=== PATIENT | male | born 1985 | race Caucasian/White ===

== ENCOUNTER 2017-07-09 18:00 | Emergency (ER) | payer MEDICAID ==
[~2017-07-09] VITALS: Ht 175.3 cm; Wt 75.0 kg
--- NOTE | 2017-07-09 18:27 | Urgent Treatment Center Report ---
See Addendum History of Present Issue Date/Time Seen by Provider 07/09/17 182 Visit Reason Pt arrived:Walked Presenting Problem:PT C/O OF ABCESS TO LEFT ARM, NO DRAINAGE Location if Accident: Onset of symptoms date/time:07/05/17 or onset unknown for: Have you (or family members/close friends) recently traveled outside the [place]? N If Yes, where/when: Have you had exposure to infectious disease within the past month? TB? Other? Specify: Patient state that he noticed small area on his left forearm that was raised and red. States that he knew it was an abcess so he marked around it so that he could watch to see if it got any bigger States that his mother and made him come in to get on antibiotics before it got to bad ALLERGIES Coded Allergies: MDX - Codeine (Codeine) (02/19/13) Converted from Generic Allergy: Acetaminophen W/Codeine #3 MDX - SULFA (sulfonamide) (SULFA (SULFONAMIDE)) (I-HIVES 02/17/13) Home Medications Reported Medications No Home Medications (NO HOME MEDICATIONS) History Medical History General Angina: No [place]: No Hypertension? No Hyperlipidemia? No CHF? No COPD? No Asthma? No Hernia? No CVA? No Seizures? No Diabetes? No UTI? No Stones? No GB Disease: No Hepatitis? No Cataracts? No Glaucoma? No MRSA? No TB? No Cancer? 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 No: respiratory distress. Lung Sounds bilateral: normal breath sounds, lungs clear. Cardiovascular normal exam, regular rate/rhythm Neurologic alert, normal exam, oriented x 3 Skin small round raised red area about the size of dime on left forearm slight bloody drainage, collected and sent to lab, denies puss no fever, no streaks with scab in place states that area has been open and draining since Sunday Medical Decision Making LABS/Meds/Orders Pt receiving controlled substance in ED? No Results/Orders Orders Procedure Date/time Status CULTURE, WOUND 07/09 1840 Active Departure Departure Time of Disposition 1839 Disposition DC Home or Self Care(routine) Clinical Impression Primary Impression: Abscess Condition STABLE Patient Instructions Skin Wound Additional Instructions Take medication as prescribed Watch area and make sure that area is continuing to decrease Over the counter tripple antibiotic ointment may be applied to area If you see that area is continuing to get larger, have red streaks or you began to run a fever go straight to the ER Follow up with family doctor Discharge Counseling Counseled pt/family regarding diagnosis, medications/RX, home care, follow up needs Prescriptions Current Visit Scripts Cephalexin (Keflex 250MG) 250 MG PO Q6 #28 CAP at 1840
[2017-07-09 18:46] VITALS: BP 149/78
--- OUTSIDE RECORDS SUMMARY | 2017-07-19 05:11 | External Medical Summary Rpt | CCD ---
Author Author , SAM VARGAS Address Unknown Phone [email or web address] Care Team Providers Care Biologist Name Role Phone ISAURO SAMMI, ISAURO Unavailable Unavailable SAMMI [facility], Unavailable Unavailable [facility] REYMUNDO ARTURO, Unavailable Unavailable REYMUNDO ARTURO JOSE RHO, JOSE Unavailable Unavailable RHO [facility] Unavailable Unavailable [facility], [facility] Unavailable Unavailable HOLDINGS, [facility] Unavailable Unavailable HOLDINGS, [facility] Un[facility], [facility] WILLIAN KATHERIN, Unavailable Unavailable WILLIAN KATHERIN GUARDADO KYL, GUARDADO Unavailable Unavailable KYL PETTEY JAM, PETTEY Unavailable Unavailable JAM [facility] Unavailable Unavailable EMERGENCY PHYS, [facility] Unavailable Unavailable EMERGENCY, [facility] Unavailable Unavailable CHANTELL, [facility] ROBERT INNA, ROBERT Unavailable Unavailable INNA [facility] Unavailable Unavailable #591, [facility] # Unavailable Unavailable [id number], [facility] # [id number] [facility], Unavailable Unavailable [facility] ANAM MAT, ANAM MAT Unavailable Unavailable Purpose Continuity of Care Document - 11-18-2009 through 2016 Problems Code Diagnosis DOS Provider Status 74116 ONYCHIA AND 06-01-2015 [place] [facility] 79764 OPEN WOUND 03-01-2015 [facility] [place] [facility] RADI[facility] WITHOUT MENTION COMPLICATIO N 4660 ACUTE 12-16-2014 [facility] PH[facility] 7862 COUGH 12-16-2014 [facility] [place] [facility] 42983 PAINFUL 12-16-2014 [facility] RESPIRATION N EMERGENCY PHYS 06673 PAIN IN 08-19-2014 [facility] CHANTELL V700 ROUTINE 08-19-2014 LAB IZABEL [facility] [facility] [email or web address] [email or web address] FACL 5225 PERIAPICAL 06-27-2014 [facility] ABSCESS [facility]IONAL WITHOUT EMERGENCY SINUS 75930 UNSPECIFIED 06-27-2014 [facility] ACQUIRED [facility]IONAL ABSENCE OF EMERGENCY TEETH 67974 [facility] 09-26-2010 [facility] Medications Na ND Rx Da Fi Fi Am Da Di Ph RX Ph St me C No te ll ll ou ys ag ar # ys at rm s nt no ma ic us Or Da si cy ia de te s n re d OX 00 04 04 0 15 3 WA 22 RU Ac YC 40 -1 -1 .0 L- 17 SH ti OD 60 5- 5- 00 MA 77 ve ON 51 20 20 RT 2 NE E- 20 10 10 [place] AC 1 PH C ET AR AM MA IN CY OP # HE N 10 5- 05 32 91 5 00 01 02 00 12 3 WA 44 RU Ac 40 -2 -1 .0 L- 83 SH ti 60 9- 1- 00 MA 15 ve 35 20 20 RT 8 NE 70 10 10 IL 5 PH C AR MA CY #5 91 PE 00 01 02 00 40 10 WA 70 RU Ac NI 78 -2 -1 .0 L- 56 SH ti CI 11 9- 1- 00 MA 53 ve LL 20 20 20 RT 4 NE IN 50 10 10 IL 1 PH C VK AR MA 25 CY 0 MG #5 91 TA BL ET Immunization Name Date Rout CVX Reac Dose Comm Prov Is Faci e tion ent ider Refu lity Give sed n TETA 08-2 35 [facility] No TYESHA NUS 5-20 TIGRE NGTO TOXO 15 KATHERIN N ID URGE ADSO NT RBED CARE INTR AMUS CULA R Procedures Procedure DOS Code Location Performer Comment TETANUS 83586 [facility] 5 URGENT KATHERIN ADSORBED CARE INTRAMUSC ULAR RADEX 16652 [facility] [place] [facility] 2 5 RADIOLOGY LD IV ALL VIEWS RADIOLOGI 80891 [facility] [place] JOSE C EXAM 5 RADIOLOGY RHO CHEST 2 VIEWS FRONTAL&L ATERAL ECG 32792 [facility] ROUTINE 5 [place] ECG EMERGENCY W/LEAST PHYS 12 LDS I&R ONLY BLOOD 82846 LAB [facility]EL LAB IZABEL COUNT 4 FABIO FABIO COMPLETE HOLDINGS HOLDINGS AUTO&AUTO DIFRNTL WBC COMPREHEN 59410 LAB [facility] SIVE 4 FABIO FABIO METABOLIC HOLDINGS HOLDINGS PANEL RADIOLOGI 07437 [facility] [place] ANAM MAT C 4 RADIOLOGY EXAMINATI ON KNEE 1/2 VIEWS MRI ANY 15846 ZAFAR DWYER JT LOWER 0 MEDICAL ARTURO EXTREM IMAGING W/O ASS CONTRAST MATRL RADIOLOGI 12786 [facility]YER C 0 MEDICAL ARTURO EXAMINATI IMAGING ON KNEE 3 ASS VIEWS Encounters Encounter Start End Date Code Location Performer Type Date OFFICE 15465 [facility] 5 URGENT KATHERIN T NEW 30 CARE MINUTES EMERGENCY 11664 [facility] [address] [facility] EMERGENCY T VISIT PHYS HIGH/URGE NT SEVERITY [facility] - 4 4 [facility] 71191 [facility] 4 4 [facility] T VISIT EMERGENCY HIGH/URGE NT SEVERITY [facility] - 0 0 [facility] OUTPATIEN INC T OFFICE 38490 [facility] PETTEY CONSULTAT 0 0 PHYSICIAN JONAS CHO NEW/ESTAB PATIENT 60 MIN HOSPITAL [facility] - 0 0 [facility] INC T OFFICE 83788 ISAURO BOX OUTPATIEN 0 0 SAMMI SAMMI T NEW 30 MINUTES
--- OUTSIDE RECORDS SUMMARY | 2017-07-19 05:11 | External Medical Summary Rpt | CCD ---
Demographics Preferred Language Guyanese Marital Status Unknown Amish Affiliation Unknown Race Unknown Ethnic Group Unknown Author Author , SAM VARGAS Address Unknown Phone Immunization No patient found.
--- OUTSIDE RECORDS SUMMARY | 2017-07-19 05:11 | External Medical Summary Rpt | CCD ---
Author Author , SAM Organization SAM Address Unknown Phone Care Team Providers Care Nursing Director Name Role Phone ISAURO SAMMI, ISAURO Unavailable Unavailable SAMMI [facility] REYMUNDO ARTURO, Unavailable Unavailable REYMUNDO ARTURO JOSE RHO, JOSE Unavailable Unavailable RHO [facility] Un[facility] Unavailable [facility], [facility] LUÍS RAYMUNDO MD, Unavailable Unavailable LUÍS RAYMUNDO MD [facility] Unavailable Unavailable IMAGING ASS, [facility] Unavailable Unavailable HOLDINGS, [facility] Unavailable Unavailable HOLDINGS, [facility] HOLDINGS [facility] Unavailable Unavailable CARE, [facility] Lisy Baron MD, Unavailable Unavailable Lisy PANDEY, Unavailable Unavailable WILLIAN SALINAS, DEBBY Unavailable Unavailable KYL PETTEY JAM, PETTEY Unavailable Unavailable [facility] Unavailable Unavailable EMERGENCY, [facility] Unavailable Unavailable CHANTELL, [facility] CH[facility]LL ROBERT INNA, ROBERT Unavailable Unavailable INNA [facility] Unavailable Unavailable #591, [facility] # Unavailable Unavailable [id number], [facility] # [id number] [facility], Unavailable Unavailable [facility] Purpose Continuity of Care Document - 11-18-2009 through 2016 Problems Code Diagnosis DOS Provider Status 27068 ONYCHIA AND 06-01-2015 [place] [facility] 37036 OPEN WOUND 03-01-2015 [facility] [place] [facility] RADIOLOGY WITHOUT MENTION COMPLICATIO N 4660 ACUTE 12-16-2014 [facility]Y PHYS 7862 COUGH 12-16-2014 [facility] [place] [facility] 51029 PAINFUL 12-16-2014 [facility] RESPIRATION [facility] EMERGENCY PHYS 29203 PAIN IN 08-19-2014 [facility] [place] CHANTELL V700 ROUTINE 08-19-2014 LAB IZABEL [employer] [facility]INGS [email or web address] CARE FACL 5225 PERIAPICAL 06-27-2014 [facility]ION[facility] WITHOUT EMERGENCY SINUS 02129 UNSPECIFIED 06-27-2014 [facility] ACQUIRED REGIONAL ABSENCE OF EMERGENCY TEETH 882.0 882.0 OPEN 02-19-2013 Josselin WOUND OF [facility] E849.0 E849.0 02-17-2013 Josselin ACCIDENT IN [facility] E920.3 E920.3 02-17-2013 [place] KNIFE/[facility] 28718 SYNOVIAL 09-26-[address] [facility] IM[facility] SPACE Allergies, Adverse Reactions, Alerts Type Drug Allergy Adverse Reaction to Substance Substance Reaction Severity SULFA (sulfonamide) I-HIVES Unknown Codeine Unknown Unknown Medications Na ND Rx Da Fi Fi Am Da Di Ph RX Ph St me C No te ll ll ou ys ag ar # ys at rm s nt no ma ic us Or Da si cy ia de te s n re d AD 49 05 0 No AC 28 -1 EL 10 3- Lo 40 20 ng TD 01 13 er AP 0 Ac ti AL ve LI 00 05 0 No DO 40 -1 CA 94 3- Lo IN 27 20 ng E 90 13 er HC 2 L Ac 1% ti ve AL OX 00 04 04 0 15 3 WA 22 RU Ac YC 40 -1 -1 .0 L- 17 SH ti OD 60 5- 5- 00 MA 77 ve ON 51 20 20 RT 2 NE E- 20 10 10 IL AC 1 PH C ET AR AM MA IN CY OP # HE N 10 5- 05 32 91 5 PE 00 01 02 00 40 10 WA 70 RU Ac NI 78 -2 -1 .0 L- 56 SH ti CI 11 9- 1- 00 MA 53 ve LL 20 20 20 RT 4 NE IN 50 10 10 IL 1 PH C VK AR MA 25 CY 0 MG #5 91 TA BL ET 00 01 02 00 12 3 WA 44 RU Ac 40 -2 -1 .0 L- 83 SH ti 60 9- 1- 00 MA 15 ve 35 20 20 RT 8 NE 70 10 10 IL 5 PH C AR MA CY #5 91 Immunization Name Date Rout CVX Reac Dose Comm Prov Is Faci e tion ent ider Refu lity Give sed n TETA 08-2 35 [facility] No TYESHA NUS 5-20 TIGRE NGTO TOXO 15 KATHERIN N ID URGE ADSO NT RBED CARE INTR AMUS CULA R Vital Signs 02-19-2013 19:39 Name Value Interpretat Reference Comment ion Range Body 98.6 [degF] Temperature BP 81 mm[Hg] Diastolic BP Systolic 141 mm[Hg] Heart 71 /min Rate/Pulse O2% 99 % Respiratory 20 /min Rate 02-17-2013 22:26 Name Value Interpretat Reference Comment ion Range BP 77 mm[Hg] Diastolic BP Systolic 132 mm[Hg] Heart 72 /min Rate/Pulse O2% 97 % Respiratory 18 /min Rate 02-17-2013 22:11 Name Value Interpretat Reference Comment ion Range BP 77 mm[Hg] Diastolic BP Systolic 132 mm[Hg] Heart 77 /min Rate/Pulse O2% 100 % Respiratory 16 /min Rate Procedures Procedure DOS Code Location Performer Comment TETANUS 85848 [facility] 5 URGENT KATHERIN ADSORBED CARE INTRAMUSC ULAR RADEX 08664 [facility] [place] [facility] 2 5 RADIOLOGY LD IV ALL VIEWS ECG 05254 [facility] ROUTINE 5 [place] ECG EMERGENCY W/LEAST PHYS 12 LDS I&R ONLY RADIOLOGI 90776 [facility] [place] [facility] C EXAM 5 RADIOLOGY RHO CHEST 2 VIEWS FRONTAL&L ATERAL BLOOD 27306 LAB [facility] LAB IZABEL COUNT 4 FABIO FABIO COMPLETE HOLDINGS HOLDINGS AUTO&AUTO DIFRNTL WBC COMPREHEN 61198 LAB [facility] LAB IZABEL SIVE 4 FABIO FABIO METABOLIC HOLDINGS HOLDINGS PANEL RADIOLOGI 77137 [facility] C 4 [place] EXAMINATI CHANTELL CHANTELL ON KNEE 1/2 [place] [address] [facility] SCHWAB JT LOWER 0 [facility] EXTREM INC INC W/O CONTRAST MATRL RADIOLOGI 25191 [place] REYMUNDO C 0 MEDICAL ARTURO EXAMINATI IMAGING ON KNEE 3 ASS VIEWS CLOSURE 86.59 M. Stiven OLVERA & Tod DUNCAN SUBCUTANE OUS NEC Encounters Encounter Start End Date Code Location Performer Type Date OFFICE 24058 ANTONELLA [facility] OUTPATIEN 5 5 URGENT KATHERIN T NEW 30 CARE MINUTES EMERGENCY 05939 [facility] 5 5 [place] K[place] DEPARTMEN EMERGENCY T VISIT PHYS HIGH/URGE NT SEVERITY HOSPITAL CAL - 4 4 [facility] CHANTELL T EMERGENCY 75654 [facility] 4 4 [facility] HIGH/URGE NT SEVERITY Emergency RENETTA RAYMUNDO (ER) 3 18:44 3 19:41 [facility] Emergency RENETTA Baron MD (ER) 3 21:49 3 22:26 [facility] JOSSELIN - 0 0 [facility] OUTPATIEN INC T OFFICE 89549 [facility] PETTEY CONSULTAT 0 0 PHYSICIAN JONAS CHO NEW/ESTAB PATIENT 60 MIN HOSPITAL [facility] - 0 0 [facility] INC T OFFICE 46313 ISAURO BOX OUTPATIEN 0 0 SAMMI SAMMI T NEW 30 MINUTES
--- OUTSIDE RECORDS SUMMARY | 2017-07-19 05:11 | External Medical Summary Rpt | CCD ---
Author Author , SAM Organization SAM Address Unknown Phone Care Team Providers Care Machinist General Name Role Phone ISAURO SAMMI, ISAURO Unavailable Unavailable SAMMI [facility], [facility] REYMUNDO ARTURO, Unavailable Unavailable REYMUNDO ARTURO JOSE RHO, JOSE Unavailable Unavailable RHO [facility] Unavailable Unavailable INC, [facility] LUÍS RAYMUNDO MD, Unavailable Unavailable LUÍS RAYMUNDO MD [facility] Unavailable Unavailable IMAGING ASS, [facility] IMAGING [facility] Unavailable Unavailable HOLDINGS, [facility] HOLDINGS [facility] Unavailable Unavailable HOLDINGS, [facility] HOLDINGS [facility] Unavailable Unavailable CARE, [facility] Lisy Baron MD, Unavailable Unavailable Lisy PANDEY, Unavailable Unavailable WILLIAN SALINAS, DEBBY Unavailable Unavailable KYL PETTEY JAM, PETTEY Unavailable Unavailable [facility] Unavailable Unavailable EMERGENCY, [facility] EMERGENCY [facility] Unavailable Unavailable CHANTELL, [facility] CHANTELL ROBERT INNA, ROBERT Unavailable Unavailable INNA [facility] Unavailable Unavailable #591, [facility] # Unavailable Unavailable [id number], [facility] # [id number] [facility], Unavailable Unavailable [facility] Purpose Continuity of Care Document - 11-18-2009 through 2016 Problems Code Diagnosis DOS Provider Status 16109 ONYCHIA AND 06-01-2015 [place] [facility] 56112 OPEN WOUND 03-01-2015 [facility] [place] [facility] RADIOLOGY WITHOUT MENTION COMPLICATIO N 4660 ACUTE 12-16-2014 [facility] BRONCHIT[facility] N EMERGENCY PHYS 7862 COUGH 12-16-2014 [facility] [place] [facility] 89458 PAINFUL 12-16-2014 [facility] RESPIRATION N EMERGENCY PHYS 61065 PAIN IN 08-19-2014 [facility] [place] CHANTELL V700 ROUTINE 08-19-2014 LAB IZABEL [employer] [facility]INGS [email or web address] CARE FACL 5225 PERIAPICAL 06-27-2014 [facility] ABSCESS REGIONAL WITHOUT EMERGENCY SINUS 47894 UNSPECIFIED 06-27-2014 [facility] ACQUIRED REGIONAL ABSENCE OF EMERGENCY TEETH 882.0 882.0 OPEN 02-19-2013 Josselin WOUND OF [facility] E849.0 E849.0 02-17-2013 Josselin ACCIDENT IN [facility] E920.3 E920.3 02-17-2013 [place] KNIFE/[facility] [address] SYNOVIAL 09-26-2010 [facility] POP[facility] IMAG[facility] SPACE Allergies, [...] Procedure DOS Code Location Performer Comment TETANUS 02258 [facility] 5 URGENT KATHERIN ADSORBED CARE INTRAMUSC ULAR RADEX 28854 [facility] [place] [facility] [facility] 2 5 RADIOLOGY LD IV ALL VIEWS ECG 67664 [facility] ROUTINE 5 [place] ECG EMERGENCY W/LEAST PHYS 12 LDS I&R ONLY RADIOLOGI 37395 [facility] [place] JOSE C EXAM 5 RADIOLOGY RHO CHEST 2 VIEWS FRONTAL&L ATERAL BLOOD 33091 LAB [facility] LAB IZABEL COUNT 4 FABIO FABIO COMPLETE HOLDINGS HOLDINGS AUTO&AUTO DIFRNTL WBC COMPREHEN 86961 LAB [facility]ZABEL LAB IZABEL SIVE 4 FAIBO FABIO METABOLIC HOLDINGS HOLDINGS PANEL RADIOLOGI 99416 [facility] C 4 [place] EXAMINATI CHANTELL CHANTELL ON KNEE 1/2 [place] [address] [facility] SCHWAB JT LOWER 0 [facility] EXTREM INC INC W/O CONTRAST MATRL RADIOLOGI 05926 [place] REYMUNDO C 0 MEDICAL ARTURO EXAMINATI IMAGING ON KNEE 3 ASS VIEWS CLOSURE 86.59 M. Stiven OLVERA & Tod DNUCAN SUBCUTANE OUS NEC Encounters Encounter Start End Date Code Location Performer Type Date OFFICE 44999 ANTONELLA DORSEY OUTPATIEN 5 5 URGENT KATHERIN T NEW 30 CARE MINUTES EMERGENCY 01931 [facility] 5 5 [place] DEPARTMEN EMERGENCY T VISIT PHYS HIGH/URGE NT SEVERITY HOSPITAL CAL - 4 4 [facility] CHANTELL T EMERGENCY 95182 [facility] 4 4 [facility] HIGH/URGE NT SEVERITY Emergency RENETTA RAYMUNDO (ER) 3 18:44 3 19:41 [facility] Emergency RENETTA Baron MD (ER) 3 21:49 3 22:26 [facility]OSSEL[facility] - 0 0 [facility] OUTPATIEN INC T OFFICE 92781 [facility] CONSULTAT 0 0 PHYSICIAN JONAS CHO NEW/ESTAB PATIENT 60 MIN HOSPITAL [facility] - 0 0 [facility] INC T OFFICE 46870 ISAURO BOX OUTPATIEN 0 0 SAMMI SAMMI T NEW 30 MINUTES
--- OUTSIDE RECORDS SUMMARY | 2017-07-19 05:11 | External Medical Summary Rpt ---
Author Author SAM Dos Santos, SAM Dos Santos Organization [employer] Address Unknown Phone Unavailable
--- OUTSIDE RECORDS SUMMARY | 2017-07-19 05:11 | External Medical Summary Rpt | CCD ---
Demographics Preferred Language Salvadorean Marital Status Unknown Synagogue Affiliation Unknown Race Unknown Ethnic Group Unknown Author Author , SAM VARGAS Address Unknown Phone Immunization No patient found.
--- OUTSIDE RECORDS SUMMARY | 2017-07-19 05:11 | External Medical Summary Rpt | CCD ---
Author Author , SAM VARGAS Address Unknown Phone [email or web address] Care Team Providers Care Dialysis Social Worker Name Role Phone ISAURO SAMMI, ISAURO Unavailable Unavailable SAMMI [facility], Unavailable Unavailable [facility] REYMUNDO ARTURO, Unavailable Unavailable REYMUNDO ARTURO JOSE RHO, JOSE Unavailable Unavailable RHO [facility] Unavailable Unavailable IM[facility]ING [facility], [facility] Unavailable Unavailable HOLDINGS, [facility] HOLDINGS [facility] Unavailable Unavailable HOLDINGS, [facility] HOLDINGS [facility] Unavailable Unavailable CARE, [facility] WILLIAN KATHERIN, Unavailable Unavailable WILLIAN KATHERIN GUARDADO KYL, GUARDADO Unavailable Unavailable KYL PETTEY JAM, PETTEY Unavailable Unavailable JAM [facility] Unavailable Unavailable EMERGENCY PHYS, [facility] Unavailable Unavailable EMERGENCY, [facility] Unavailable Unavailable CHANTELL, [facility] ROBERT INNA, ROBERT Unavailable Unavailable INNA [facility] Unavailable Unavailable #591, [facility] # Unavailable Unavailable [id number], [facility] # [id number] [facility], Unavailable Unavailable [facility] ANAM MAT, ANAM MAT Unavailable Unavailable Purpose Continuity of Care Document - 11-18-2009 through 2016 Problems Code Diagnosis DOS Provider Status 03498 ONYCHIA AND 06-01-2015 [facility] 68653 OPEN WOUND 03-01-2015 [facility] [place] [facility] RADIOLOGY WITHOUT MENTION COMPLICATIO N 4660 ACUTE 12-16-2014 [facility] BRON[facility]IS N EMERGENCY PHYS 7862 COUGH 12-16-2014 [facility] 39776 PAINFUL 12-16-2014 [facility] RESPIRATION N EMERGENCY PHYS 58540 PAIN IN 08-19-2014 [facility] CHANTELL V700 ROUTINE 08-19-2014 LAB IZABEL [facility] EXAM@HEALTH CARE FACL 5225 PERIAPICAL 06-27-2014 [facility] WITHOUT EMERGENCY SINUS 29933 UNSPECIFIED 06-27-2014 [facility] AC[facility] ABSENCE OF EMERGENCY TEETH 65561 [facility] 09-26-2010 [place] [facility]ING [facility] SPACE [...] Procedure DOS Code Location Performer Comment T[facility]ANUS 26186 [facility] U[facility]ENT [facility]IN ADSORBED CARE INTRAMUSC ULAR RADEX 06920 [facility] [place] [facility] 2 5 RADIOLOGY LD IV ALL VIEWS RADIOLOGI 67389 [facility] [place] JOSE C EXAM 5 RADIOLOGY RHO CHEST 2 VIEWS FRONTAL&L ATERAL ECG 24952 [facility] ROUTINE 5 [place] KYL ECG EMERGENCY W/LEAST PHYS 12 LDS I&R ONLY BLOOD 58552 LAB IZABEL LAB IZABEL COUNT 4 FABIO FABIO COMPLETE HOLDINGS HOLDINGS AUTO&AUTO DIFRNTL WBC COMPREHEN 86854 LAB IZABEL LAB IZABEL SIVE 4 FABIO FABIO METABOLIC HOLDINGS HOLDINGS PANEL RADIOLOGI 93637 [facility] [place] ANAM MAT C 4 RADIOLOGY EXAMINATI ON KNEE 1/2 VIEWS MRI ANY 12773 ZAFAR DWYER JT LOWER 0 MEDICAL ARTURO EXTREM IMAGING W/O ASS CONTRAST MATRL RADIOLOGI 29673 ZAFAR DWYER C 0 MEDICAL ARTURO EXAMINATI IMAGING ON KNEE 3 ASS VIEWS Encounters Encounter Start End Date Code Location Performer Type Date [facility]ICE 87864 [facility] 5 5 URGENT KATHERIN T NEW 30 CARE MINUTES EMERGENCY 11142 [facility] 5 5 [place] KYL [facility] EMERGENCY T VISIT PHYS HIGH/URGE NT SEVERITY [facility] - 4 4 [facility] EMERGENCY [address] [facility] 4 4 [facility] T VISIT EMERGENCY HIGH/URGE NT SEVERITY [facility] JOSSELIN - 0 0 [facility] OUTPATIEN INC T OFFICE 44593 [facility] PETTEY CONSULTAT 0 0 PHYSICIAN JONAS CHO NEW/ESTAB PATIENT 60 MIN HOSPITAL [facility] - 0 0 [facility] INC T OFFICE 53764 ISA[address] BOX OUTPATIEN 0 0 SAMMI SAMMI T NEW 30 MINUTES
== END 2017-07-09 18:46 | disposition home or self-care (01) ==
LOC: ER 18:00 → UTC 18:00
DX: L02.414 Cutaneous abscess of left upper limb (principal); Z88.2 Allergy status to sulfonamides; Z88.6 Allergy status to analgesic agent; Z87.891 Personal history of nicotine dependence

== ENCOUNTER → 2017-07-12 | Emergency (ER) | payer MEDICAID ==
[~2017-07-12] MED LIST: KEFLEX 500MG.500 MG PO; KEFLEX250 M1 PO; NOMEDS
--- OUTSIDE RECORDS SUMMARY | 2017-07-19 22:41 | External Medical Summary Rpt | CCD ---
Author Author , SAM VARGAS Address Unknown Phone Care Team Providers Care Ice Skating Coach Name Role Phone ISAURO SAMMI, ISAURO Unavailable Unavailable SAMMI [facility], Unavailable [facility]available [facility] JOSE RHO, JOSE Unavailable Unavailable RHO [facility] Un[facility] Un[facility] INC, [facility] LUÍS RAYMUNDO MD, Unavailable Unavailable LUÍS RAYMUNDO MD [facility] Unavailable Unavailable IMAGING ASS, [facility] Unavailable Unavailable HOLDINGS, [facility] HOLDINGS [facility] Unavailable Unavailable HOLDINGS, [facility] HOLDINGS [facility] Un[facility] Un[facility] CARE, [facility] Lisy Baron MD, Unavailable Unavailable Lisy PANDEY, Unavailable Unavailable WILLIAN PANDEY GUARDADO KYL, GUARDADO Unavailable Unavailable KYL PETTEY JAM, PETTEY Unavailable Unavailable JAM [facility] Unavailable Unavailable EMERGENCY PH[facility], [facility] Unavailable Unavailable EMERGENCY, [facility] Unavailable Unavailable CHANTELL, [facility] CHANTELL ROBERT INNA, ROBERT Unavailable Unavailable INNA [facility] Unavailable Unavailable #591, [facility] # Unavailable Unavailable [id number], [facility] # [id number] [facility], Unavailable Unavailable [facility] Purpose Continuity of Care Document - 11-18-2009 through 2016 Problems Code Diagnosis DOS Provider Status 23362 ONYCHIA AND 06-01-2015 [facility] 41286 OPEN WOUND 03-01-2015 [facility] WITHOUT MENTION COMPLICATIO N 4660 ACUTE 12-16-2014 [facility] BRONCHITIS N EMERGENCY PHYS 7862 COUGH 12-16-2014 [facility] [place] [facility] 40194 PAINFUL 12-16-2014 [facility] RESPIRATION N EMERGENCY PHYS 42698 PAIN IN 08-19-2014 [facility] [place] CHANTELL V700 ROUTINE 08-19-2014 LAB IZABEL [facility] EXAM@HEALTH CARE FACL 5225 PERIAPICAL 06-27-2014 [facility] WITHOUT EMERGENCY SINUS 58089 UNSPECIFIED 06-27-2014 [facility] ABSENCE OF EMERGENCY TEETH 882.0 882.0 OPEN 02-19-2013 Josselin WOUND OF [facility] E849.0 E849.0 02-17-2013 Josselin ACCIDENT IN [facility] E920.3 E920.3 02-17-2013 Josselin KNIFE/[facility] 26560 SYNOVIAL 09-26-2010 [facility] POPLITEAL IMAGING ASS SPACE Allergies, [...] Procedure DOS Code Location Performer Comment TETANUS 73641 ANTONELLA WILLIAN TOXOID 5 URGENT KATHERIN ADSORBED CARE INTRAMUSC ULAR RADEX 44019 [facility] [place] [facility] [facility] 2 5 RADIOLOGY LD IV ALL VIEWS RADIOLOGI 30056 [facility] [place] JOSE C EXAM 5 RADIOLOGY RHO CHEST 2 VIEWS FRONTAL&L ATERAL ECG 66610 [facility] ROUTINE 5 [place] KYL ECG EMERGENCY W/LEAST PHYS 12 LDS I&R ONLY BLOOD 54194 LAB IZABEL LAB IZABEL COUNT 4 FABIO FABIO COMPLETE HOLDINGS HOLDINGS AUTO&AUTO DIFRNTL WBC COMPREHEN 37773 LAB IZABEL LAB IZABEL SIVE 4 FABIO FABIO METABOLIC HOLDINGS HOLDINGS PANEL RADIOLOGI 82698 [facility] C 4 [facility] EXAMINA CHANTELL CHANTELL ON KNEE 1/2 VIEWS MRI ANY 76690 [facility] SCHWAB JT LOWER 0 [facility] EXTREM INC INC W/O CONTRAST MATRL RADIOLOGI 52796 [facility] SCHWAB C 0 [facility] EXAMINATI INC INC ON KNEE 3 VIEWS CLOSURE 86.59 M. Stiven Stout MD SUBCUTANE OUS NEC Encounters Encounter Start End Date Code Location Performer Type Date OFFICE 18037 ANTONELLA DORSEY OUTPATIEN 5 5 URGENT KATHERIN T NEW 30 CARE MINUTES EMERGENCY 61757 [facility] 5 5 [place] KYL [facility] EMERGENCY T VISIT PHYS HIGH/URGE NT SEVERITY [facility]OS[facility] - 4 4 [facility] CHANTELL T EMERGENCY 54956 [facility] 4 4 REGIONAL INNA [facility] T VISIT EMERGENCY HIGH/URGE NT SEVERITY Emergency RENETTA RAYMUNDO (ER) 3 18:44 3 19:41 [facility] A Emergency RENETTA Baron MD (ER) 3 21:49 3 22:26 [facility] JOSSELIN - 0 0 [facility] OUTPATIEN INC T OFFICE 38421 [facility] PETTEY CONSULTAT 0 0 PHYSICIAN JONAS CHO NEW/ESTAB PATIENT 60 MIN HOSPITAL [facility]OSSELIN - 0 0 [facility] INC T OFFICE 22966 ISA[address]O BOX OUTPATIEN 0 0 SAMMI SAMMI T NEW 30 MINUTES
--- OUTSIDE RECORDS SUMMARY | 2017-07-19 22:41 | External Medical Summary Rpt | CCD ---
Demographics Preferred Language Danish Marital Status Unknown Baptism Affiliation Unknown Race Unknown Ethnic Group Unknown Author Author , SAM VARGAS Address Unknown Phone Immunization No patient found.
--- OUTSIDE RECORDS SUMMARY | 2017-07-19 22:41 | External Medical Summary Rpt | CCD ---
Author Author , SAM VARGAS Address Unknown Phone [email or web address] Care Team Providers Care Assembler Leather Goods Name Role Phone ISAURO SAMMI, ISAURO Unavailable Unavailable SAMMI [facility], Unavailable Unavailable [facility] REYMUNDO ARTURO, Unavailable Unavailable REYMUNDO ARTURO JOSE RHO, JOSE Unavailable Unavailable RHO [facility] Unavailable Unavailable IMAGING ASS, [facility] Unavailable Unavailable HOLDINGS, [facility] HOLDINGS [facility] Unavailable Unavailable HOLDINGS, [facility] HOLDINGS [facility] Unavailable Unavailable CARE, [facility] WILLIAN KATHERIN, Unavailable Unavailable WILLIAN KATHERIN GUARDADO KYL, GUARDADO Unavailable Unavailable KYL PETTEY JAM, PETTEY Unavailable Unavailable JAM [facility] Unavailable Unavailable EMERGENCY PHYS, [facility] Unavailable Unavailable EMERGENCY, [facility] Unavailable Unavailable CHANTELL, [facility] CHANTELL ROBERT INNA, ROBERT Unavailable Unavailable INNA [facility] Unavailable Unavailable #591, [facility] # Unavailable Unavailable [id number], [facility] # [id number] [facility], Unavailable Unavailable [facility] ANAM MAT, ANAM MAT Unavailable Unavailable Purpose Continuity of Care Document - 11-18-2009 through 2016 Problems Code Diagnosis DOS Provider Status 13793 ONYCHIA AND 06-01-2015 [place] [facility] 09426 OPEN WOUND 03-01-2015 [facility] [place] RADIOLOGY WITHOUT MENTION COMPLICATIO N 4660 ACUTE 12-16-2014 [facility] BRONCHITIS N EMERGENCY PHYS 7862 COUGH 12-16-2014 [facility] [place] [facility] 48704 PAINFUL 12-16-2014 [facility] RESPIRATION N EMERGENCY PHYS 77414 PAIN IN 08-19-2014 [facility] LOWER LEG CHANTELL V700 ROUTINE 08-19-2014 LAB IZABEL [facility]ICAL HOLDINGS EXAM@HEALTH CARE FACL 5225 PERIAPICAL 06-27-2014 [facility] WITHOUT EMERGENCY SINUS 60450 UNSPECIFIED 06-27-2014 [facility] ACQU[facility] ABSENCE OF EMERGENCY TEETH [facility] 09-26-2010 [place] [facility] POP[facility]ING ASS SPACE [...] 08-2 35 [facility] No TYESHA NUS 5-20 TGIRE NGTO TOXO 15 KATHERIN N ID URGE ADSO NT RBED CARE INTR AMUS CULA R Procedures Procedure DOS Code Location Performer Comment TETANUS 66505 [place] WILL[facility] TOXOID 5 URGENT KATHERIN ADSORBED CARE INTRAMUSC ULAR RADEX 23312 [facility] [place] [facility] [facility] 2 5 RADIOLOGY LD IV ALL VIEWS RADIOLOGI 27668 [facility] [place] JOSE C EXAM 5 RADIOLOGY RHO CHEST 2 VIEWS FRONTAL&L ATERAL ECG 06678 [facility] ROUTINE 5 [place] KYL ECG EMERGENCY W/LEAST PHYS 12 LDS I&R ONLY COMPREHEN 04846 LAB IZABEL LAB IZABEL SIVE 4 FABIO FABIO METABOLIC HOLDINGS HOLDINGS PANEL BLOOD 26804 LAB IZABEL LAB IZABEL COUNT 4 FABIO FABIO COMPLETE HOLDINGS HOLDINGS AUTO&AUTO DIFRNTL WBC RADIOLOGI 39545 [facility] [place] ANAM MAT C 4 RADIOLOGY EXAMINATI ON KNEE 1/2 VIEWS [place] ANY 69400 ZAFAR DWYER JT LOWER 0 MEDICAL ARTURO EXTREM IMAGING W/O ASS CONTRAST MATRL RADIOLOGI 26644 ZAFAR DWYER C 0 MEDICAL ARTURO EXAMINATI IMAGING ON KNEE 3 ASS VIEWS Encounters Encounter Start End Date Code Location Performer Type Date OFFICE 93552 [facility] 5 5 URGENT KATHERIN T NEW 30 CARE MINUTES EMERGENCY 13102 [facility] 5 5 [place] K[place] [facility] EMERGENCY T VISIT PHYS HIGH/URGE NT SEVERITY [facility] [address] [facility] EMERGENCY 75418 [facility] 4 4 [facility] T VISIT EMERGENCY HIGH/URGE NT SEVERITY [facility] JOSSELIN - 0 0 [facility] OUTPATIEN INC T OFFICE 91704 [facility] PETTEY CONSULTAT 0 0 PHYSICIAN JONAS CHO NEW/ESTAB PATIENT 60 MIN HOSPITAL [facility] - 0 0 [facility] OUTPATIEN INC T OFFICE 78692 ISAURO BOX OUTPATIEN 0 0 SAMMI SAMMI T NEW 30 MINUTES
--- OUTSIDE RECORDS SUMMARY | 2017-07-19 22:41 | External Medical Summary Rpt | CCD ---
Demographics Preferred Language Sri Lankan Marital Status Unknown Orthodox Affiliation Unknown Race Unknown Ethnic Group Unknown Author Author , SAM VARGAS Address Unknown Phone Immunization No patient found.
--- OUTSIDE RECORDS SUMMARY | 2017-07-19 22:41 | External Medical Summary Rpt | CCD ---
Author Author , SAM VARGAS Address Unknown Phone [email or web address] Care Team Providers Care Bookkeeping Machine Mechanic Name Role Phone ISAURO SAMMI, ISAURO Unavailable Unavailable SAMMI [facility], Unavailable Unavailable [facility] REYMUNDO ARTURO, Unavailable Unavailable REYMUNDO ARTURO JOSE RHO, JOSE Unavailable Unavailable RHO [facility] Unavailable Unavailable IMAGING [facility], [facility] Unavailable Unavailable HOLDINGS, [facility] HOLDINGS [facility] Unavailable Unavailable HOLDINGS, [facility] HOLDINGS [facility] Unavailable CARE, [facility] WILLIAN KATHERIN, Unavailable Unavailable WILLIAN KATHERIN GUARDADO KYL, GUARDADO Unavailable Unavailable KYL PETTEY JAM, PETTEY Unavailable Unavailable JAM [facility] Unavailable Unavailable EMERGENCY PHYS, [facility] EMERGENCY PHYS [facility] Unavailable Unavailable EMERGENCY, [facility] Unavailable Unavailable CHANTELL, [facility] CHANTELL ROBERT INNA, ROBERT Unavailable Unavailable INNA [facility] Unavailable Unavailable #591, [facility] # Unavailable Unavailable [id number], [facility] # [id number] [facility], Unavailable Unavailable [facility] ANAM MAT, ANAM MAT Unavailable Unavailable Purpose Continuity of Care Document - 11-18-2009 through 2016 Problems Code Diagnosis DOS Provider Status 09314 ONYCHIA AND 06-01-2015 [facility] 45469 OPEN WOUND 03-01-2015 [facility] [place] FOR[place]ARM RADIOLOGY WITHOUT MENTION COMPLICATIO N 4660 ACUTE 12-16-2014 [facility] BRONCHITIS N EMERGENCY PHYS 7862 COUGH 12-16-2014 [facility] [place] [facility] 94093 PAINFUL 12-16-2014 [facility] RESPIRATION N EMERGENCY PHYS 90537 PAIN IN 08-19-2014 [facility] LOWER LEG CHANTELL V700 ROUTINE 08-19-2014 LAB IZABEL [facility] EXAM@HEALTH CARE FACL 5225 PERIAPICAL 06-27-2014 [facility] WITHOUT EMERGENCY SINUS 14879 UNSPECIFIED 06-27-2014 [facility] ACQU[facility] ABSENCE OF EMERGENCY TEETH 75506 [facility] 09-26-2010 [place] [facility] POP[facility] IMAGING ASS SPACE [...] Procedure DOS Code Location Performer Comment TETANUS 40594 [facility] WILL[facility] TOXOID 5 URGENT KATHERIN ADSORBED CARE INTRAMUSC ULAR RADEX 76247 [facility] [place] [facility] 2 5 RADIOLOGY LD IV ALL VIEWS RADIOLOGI 97620 [facility] [place] JOSE C EXAM 5 RADIOLOGY RHO CHEST 2 VIEWS FRONTAL&L ATERAL ECG 59232 [facility] ROUTINE 5 [place] KYL ECG EMERGENCY W/LEAST PHYS 12 LDS I&R ONLY COMPREHEN 68255 LAB IZABEL LAB IZABEL SIVE 4 FABIO FABIO METABOLIC HOLDINGS HOLDINGS PANEL BLOOD 49245 LAB IZABEL LAB IZABEL COUNT 4 FABIO FABIO COMPLETE HOLDINGS HOLDINGS AUTO&AUTO DIFRNTL WBC RADIOLOGI 74341 [facility] [place] ANAM MAT C 4 RADIOLOGY EXAMINATI ON KNEE 1/2 VIEWS MRI ANY 38888 ZAFAR DWYER JT LOWER 0 MEDICAL ARTURO EXTREM IMAGING W/O ASS CONTRAST MATRL RADIOLOGI 04131 ZAFAR DWYER C 0 MEDICAL ARTURO EXAMINATI IMAGING ON KNEE 3 ASS VIEWS Encounters Encounter Start End Date Code Location Performer Type Date OFFICE 85330 [facility] 5 URGENT KATHERIN T NEW 30 CARE MINUTES EMERGENCY 26924 [facility] 5 5 [place] K[place] [facility] EMERGENCY T VISIT PHYS HIGH/URGE NT SEVERITY [facility] - 4 4 [facility] EMERGENCY 85421 [facility] 4 4 [facility] T VISIT EMERGENCY HIGH/URGE NT SEVERITY [facility] JOSSELIN - 0 0 [facility] OUT[facility]EN INC T OFFICE 36934 [facility] PETTEY CONSULTAT 0 0 PHYSICIAN JONAS CHO NEW/ESTAB PATIENT 60 MIN HOSPITAL [facility] - 0 0 [facility] INC T OFFICE 59407 ISA[address] BOX OUTPATIEN 0 0 SAMMI SAMMI T NEW 30 MINUTES
--- OUTSIDE RECORDS SUMMARY | 2017-07-19 22:41 | External Medical Summary Rpt | CCD ---
Author Author , SAM VARGAS Address Unknown Phone Care Team Providers Care Director Of Employee Development Name Role Phone ISAURO SAMMI, ISAURO Unavailable Unavailable SAMMI [facility], Unavailable Unavailable [facility] JOSE RHO, JOSE Unavailable Unavailable RHO [facility] Un[facility] Un[facility] INC, [facility] LUÍS RAYMUNDO MD, Unavailable Unavailable LUÍS RAYMUNDO MD [facility] Unavailable Unavailable IMAGING ASS, [facility] Unavailable Unavailable HOLDINGS, [facility] HOLDINGS [facility] Unavailable Unavailable HOLDINGS, [facility] HOLDINGS [facility] Unavailable Unavailable CARE, [facility] Lisy Baron MD, Unavailable Unavailable Lisy PANDEY, Unavailable Unavailable WILLIAN PANDEY GUARDADO KYL, GUARDADO Unavailable Unavailable KYL PETTEY JAM, PETTEY Unavailable Unavailable JAM [facility] Unavailable Unavailable EMERGENCY PHYS, [facility] EMERGENCY PHYS [facility] Unavailable Unavailable EMERGENCY, [facility] EMERGENCY [facility] Unavailable Unavailable CHANTELL, [facility] CHANTELL ROBERT INNA, ROBERT Unavailable Unavailable INNA [facility] Unavailable Unavailable #591, [facility] # Unavailable Unavailable [id number], [facility] # [id number] [facility], Unavailable Unavailable [facility] Purpose Continuity of Care Document - 11-18-2009 through 2016 Problems Code Diagnosis DOS Provider Status 51436 ONYCHIA AND 06-01-2015 [facility] 53846 OPEN WOUND 03-01-2015 [facility] WITHOUT MENTION COMPLICATIO N 4660 ACUTE 12-16-2014 [facility] BRONCHITIS N EMERGENCY PHYS 7862 COUGH 12-16-2014 [facility] [place] [facility] 75014 PAINFUL 12-16-2014 [facility] RESPIRATION N EMERGENCY PHYS 61100 PAIN IN 08-19-2014 [facility] [place] CHANTELL V700 ROUTINE 08-19-2014 LAB IZABEL [facility] EXAM@HEALTH CARE FACL 5225 PERIAPICAL 06-27-2014 [facility] WITHOUT EMERGENCY SINUS 42907 UNSPECIFIED 06-27-2014 [facility] ACQUIRED [facility]IONAL ABSENCE OF EMERGENCY TEETH 882.0 882.0 OPEN 02-19-2013 Josselin WOUND OF [facility] E849.0 E849.0 02-17-2013 Jsoselin ACCIDENT IN [facility] E920.3 E920.3 02-17-2013 Josselin KNIFE/[facility] /[facility] 45876 SYNOVIAL 09-26-2010 [facility] OF MEDICAL POPLITEAL IMAGING ASS SPACE Allergies, [...] Procedure DOS Code Location Performer Comment TETANUS 60073 ANTONELLA WILLIAN TOXOID 5 URGENT KATHERIN ADSORBED CARE INTRAMUSC ULAR RADEX 54442 [facility] [place] [facility] [facility] 2 5 RADIOLOGY LD IV ALL VIEWS RADIOLOGI 37611 [facility] [place] JOSE C EXAM 5 RADIOLOGY RHO CHEST 2 VIEWS FRONTAL&L ATERAL ECG 94518 [facility] ROUTINE 5 [place] KYL ECG EMERGENCY W/LEAST PHYS 12 LDS I&R ONLY BLOOD 57065 LAB IZABEL LAB IZABEL COUNT 4 FABIO FABIO COMPLETE HOLDINGS HOLDINGS AUTO&AUTO DIFRNTL WBC COMPREHEN 57677 LAB IZABEL LAB IZABEL SIVE 4 FABIO FABIO METABOLIC HOLDINGS HOLDINGS PANEL RADIOLOGI 83323 [facility] C 4 [facility] EXAMINA CHANTELL CHANTELL ON KNEE 1/2 VIEWS MRI ANY 60820 [facility] SCHWAB JT LOWER 0 [facility] EXTREM INC INC W/O CONTRAST MATRL RADIOLOGI 40626 [facility] SCHWAB C 0 [facility] EXAMINATI INC INC ON KNEE 3 VIEWS CLOSURE 86.59 M. Stiven Stout MD SUBCUTANE OUS NEC Encounters Encounter Start End Date Code Location Performer Type Date OFFICE 93569 ANT[facility] DORSEY OUTPATIEN 5 5 URGENT KATHERIN T NEW 30 CARE MINUTES EMERGENCY 63982 [facility] 5 5 [place] KYL [facility] EMERGENCY T VISIT PHYS HIGH/URGE NT SEVERITY HOSPITAL [facility] - 4 4 [place] CHANTELL T EMERGENCY 58089 [facility] 4 4 [facility]IONAL INNA [facility] T VISIT EMERGENCY HIGH/URGE NT SEVERITY Emergency RENETTA RAYMUNDO (ER) 3 18:44 3 19:41 [facility] A Emergency RENETTA Baron MD (ER) 3 21:49 3 22:26 [facility]OSSELIN - 0 0 [facility] OUTPATIEN INC T OFFICE 07367 [facility] PETTEY CONSULTAT 0 0 PHYSICIAN JONAS CHO NEW/ESTAB PATIENT 60 MIN HOSPITAL [facility] - 0 0 [facility] OUT[facility] INC T OFFICE 45066 ISAURO BOX OUTPATIEN 0 0 SAMMI SAMMI T NEW 30 MINUTES
== END ==
LOC: ER 18:41
DX: L02.414 Cutaneous abscess of left upper limb (principal); Z88.2 Allergy status to sulfonamides; Z88.6 Allergy status to analgesic agent; F17.210 Nicotine dependence, cigarettes, uncomplicated

== ENCOUNTER 2017-07-16 09:56 | Emergency (ER) | payer MEDICAID ==
[~2017-07-16] VITALS: Ht 175.3 cm; Wt 74.8 kg
--- NOTE | 2017-07-16 10:15 | Urgent Treatment Center Report ---
History of Present Issue Date/Time Seen by Provider 07/16/17 1010 Visit Reason Pt arrived:Walked Presenting Problem:PT HAS MRSA ON HIS LEFT ARM. ADVISES IT HAS NOT GOTTEN ANY BETTER AFTER BEING ON BACTRIM Location if Accident: Onset of symptoms date/time:/ or onset unknown for:MEDICAL HX UNKNOWN Have you (or family members/close friends) recently traveled outside the [place]? N If Yes, where/when: Have you had exposure to infectious disease within the past month? TB? Other? Specify: Source patient Exam Limitations no limitations Comment 32-year-old male presents for abscess to the LEFT forearm. Patient states he's finished up to antibiotics and thinks it has worsened. Chest finished Bactrim wound culture positive for MRSA ALLERGIES Coded Allergies: Sulfa (Sulfonamide Antibiotics) (Mild, 07/16/17) codeine (Mild, 07/16/17) Home Medications Active Scripts Cephalexin (Keflex 250MG) 250 MG PO Q6 #28 CAP Prov: 07/09/17 Reported Medications No Home Medications (NO HOME MEDICATIONS) History Medical History General CAD? No Angina: No [place]: No Hypertension? No Hyperlipidemia? No CHF? No DVT? No PE? No COPD? No Asthma? No Anemia? No GERD? No Gastric ulcers? No GI Bleed? No Hernia? No Thyroid Problems? No Hypothyroidism? No CVA? No Seizures? No Diabetes? No Renal Insuffiency? No UTI? No Stones? No BPH? No GB Disease: No Nephritic Syndrome? No Asplenia? No Hepatitis? No Sickle Cell Disease? No Arthritis? No Migraines? No Cataracts? No Glaucoma? No MRSA? No HIV? No TB? No Anxiety? No Depression? No Cancer? No More? 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 2 or more SIRS Criteria Met? B/P:128/78 MAP:94 Creatinine >2.0? UA output<0.5ml/kg/hr for 2 hrs? Platelet count >100,000? Lactate >2.0mmol/1? INR >1.2 or PTT > than 60 sec? Evidence of Organ Dysfunction? Provider documented clinical suspician of infection? Sepsis Criteria Count: 0 Sepsis Risk: General Appearance normal appearance, no apparent distress Respiratory Status Yes: trachea midline, chest symmetrical, non tender chest. No: respiratory distress. Lung Sounds bilateral: normal breath sounds, lungs clear. Cardiovascular normal exam Extremities non-tender, normal range of motion, abscess draining pus from the LEFT forearm with induration and possible tunneling Neurologic alert, normal exam, oriented x 3 Skin pus draining from abscess on the LEFT arm with red induration Medical Decision Making LABS/Meds/Orders Pt receiving controlled substance in ED? No Consult MD Physician Consult Consult/PCP martin Time Called 1012 Reason Pt. Condition Comments Abscess possible tunneled May need surgery for I and D Departure Departure Time of Disposition 1019 Disposition DC Home or Self Care(routine) Clinical Impression Primary Impression: MRSA (methicillin resistant staph aureus) culture positive Condition STABLE Referrals Remigio Woods MD Patient Instructions DI for Methicillin-Resistant Staph Infection (MRSA), Methicillin-Resistant Staph Infection Additional Instructions Spoke with Dr. woods and he wants us to send patient to his office now Discharge Counseling Counseled pt/family regarding diagnosis, follow up needs at 1021
[2017-07-16 10:22] VITALS: BP 128/78
--- OUTSIDE RECORDS SUMMARY | 2017-07-21 01:52 | External Medical Summary Rpt | CCD ---
Demographics Preferred Language Filipino Marital Status Unknown Yazidism Affiliation Unknown Race Unknown Ethnic Group Unknown Author Author , SAM VARGAS Address Unknown Phone Immunization No patient found.
--- OUTSIDE RECORDS SUMMARY | 2017-07-21 01:52 | External Medical Summary Rpt | CCD ---
Author Author , SAM Kimble SAM Address Unknown Phone Care Team Providers Care Aircraft Cleaning Supervisor Name Role Phone LUÍS RAYMUNDO MD, Unavailable Unavailable LUÍS Baron MD, Unavailable Unavailable Lisy Baron MD [facility] # Unavailable Unavailable [id number], [facility] # [id number] Purpose Continuity of Care Document - 01-20-2010 through 2016 Problems Code Diagnosis DOS Provider Status 882.0 882.0 OPEN 02-19-2013 Roland WOUND OF [facility] E849.0 E849.0 02-17-2013 Roland ACCIDENT IN [facility] E920.3 E920.3 02-17-2013 [place] KNIFE/[facility] /[facility] F80.81 CHILDHOOD ONSET FLUENCY DISORDER Allergies, Adverse Reactions, Alerts Type Drug Allergy [...] N 10 5- 05 32 91 5 Vital Signs 02-19-2013 19:39 Name Value Interpretat [...] Procedures Procedure DOS Code Location Performer Comment CLOSURE 86.59 Stiven [facility] & Tod DUNCAN SUBCUTANE OUS NEC Encounters Encounter Start End Date Code Location Performer Type Date Emergency RENETTA RAYMUNDO (ER) 3 18:44 3 19:41 [facility] A Emergency RENETTA Baron MD (ER) 3 21:49 3 22:26 [facility]
--- OUTSIDE RECORDS SUMMARY | 2017-07-21 01:52 | External Medical Summary Rpt | CCD ---
Demographics Preferred Language Hebrew Marital Status Unknown Baptist Affiliation Unknown Race Unknown Ethnic Group Unknown Author Author , JURGEN GENTILERICARDO Address Unknown Phone [email or web address] Care Team Providers Care Entry Level Chemist Name Role Phone [facility] # Unavailable Unavailable [id number], [facility] # [id number] Purpose Continuity of Care Document - 01-20-2010 through 2016 Medications Na ND Rx Da Fi Fi [...]
--- OUTSIDE RECORDS SUMMARY | 2017-07-21 01:52 | External Medical Summary Rpt | CCD ---
Demographics Preferred Language Taiwanese Marital Status Unknown Baptism Affiliation Unknown Race Unknown Ethnic Group Unknown Author Author , SAM VARGAS Address Unknown Phone Immunization No patient found.
--- OUTSIDE RECORDS SUMMARY | 2017-07-21 01:52 | External Medical Summary Rpt | CCD ---
Demographics Preferred Language Romansh Marital Status Unknown Latter-Day Affiliation Unknown Race Unknown Ethnic Group Unknown Author Author , JURGEN GENTILERICARDO Address Unknown Phone [email or web address] Care Team Providers Care Career Center Advisor Name Role Phone [email or web address] # Unavailable Unavailable [id number], [facility] # [id number] Purpose Continuity of Care Document - 01-20-2010 [...]
--- OUTSIDE RECORDS SUMMARY | 2017-07-21 01:52 | External Medical Summary Rpt | CCD ---
Author Author , SAM Kimble SAM Address Unknown Phone Care Team Providers Care Beverage Sales Consultant Name Role Phone LUÍS RAYMUNDO MD, Unavailable Unavailable LUÍS Baron MD, Unavailable Unavailable Lisy Baron MD [facility] # Unavailable Unavailable [id number], [facility] # [id number] Purpose Continuity of Care Document - 01-20-2010 through 2016 Problems Code Diagnosis DOS Provider Status 882.0 882.0 OPEN 02-19-2013 Roland WOUND OF [facility] E849.0 E849.0 02-17-2013 Roland ACCIDENT IN [facility] E920.3 E920.3 02-17-2013 [place] KNIFE/[facility] /[facility] 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
== END 2017-07-16 10:23 | disposition home or self-care (01) ==
LOC: UTC 09:56
DX: L02.414 Cutaneous abscess of left upper limb (principal); B95.62 Methicillin resistant Staphylococcus aureus infection as the cause of diseases classified elsewhere

== ENCOUNTER → 2017-07-16 | Outpatient (CLI) | payer MEDICAID ==
[2017-07-16 11:55] LABS: HEMOGLOBIN 15.8 g/dL (14.1-18.0); LYMPH # 1.1 K/mm3 (0.7-4.5); LYMPH % 26.5 % (10-50)
[2017-07-16 12:40] LABS: BUN 10 mg/dL (7-18)
[2017-07-16 12:48] LABS: GFR (ESTIMATED) 78 ML/MIN (>60)
== END ==
LOC: LAB 11:31
PROVIDERS: Surgery
DX: L02.414 Cutaneous abscess of left upper limb (principal); Z01.818 Encounter for other preprocedural examination

== ENCOUNTER 2017-09-02 10:37 | Emergency (ER) | payer MEDICAID ==
[~2017-09-02] VITALS: Ht 167.6 cm; Wt 68.0 kg
--- OUTSIDE RECORDS SUMMARY | 2017-09-02 10:42 | External Medical Summary Rpt | CCD ---
Demographics Preferred Language Maltese Marital Status Unknown Uatsdin Affiliation Unknown Race Unknown Ethnic Group Unknown Author Author , SAM VARGAS Address Unknown Phone Immunization No patient found.
--- OUTSIDE RECORDS SUMMARY | 2017-09-02 10:42 | External Medical Summary Rpt | CCD ---
Author Author [employer] Organization [employer] Address Unknown Phone Unavailable Purpose Continuity of Care Document - through 2016
--- OUTSIDE RECORDS SUMMARY | 2017-09-02 10:42 | External Medical Summary Rpt ---
Author Author SAM Dos Santos, SAM [employer] Organization [employer] Address Unknown Phone Unavailable Results Comprehensive metabolic 2000 panel in Serum or Plasma Observa Value Referen Units Interpr Notes Date tion ce etation Range Albumin/G 1.1 - 1.8 No Normal No Jul 9 lobulin informati informati 2016 [Mass on in on in 11:32 AM ratio] in source source Serum or data data Plasma Albumin 3.4 - 5.0 gm/dL Normal No Jul 9 [Mass/vol informati 2016 ume] in on in 11:32 AM Serum or source Plasma data Alkaline 46 - 116 U/L Normal No Jul 9 phosphata informati 2017 se on in 11:32 AM [Enzymati source c data activity/ volume] in Serum or Plasma Bilirubin 0.2 - 1.0 mg/dL Normal No Jul 9 .total informati 2016 [Mass/vol on in 11:32 AM ume] in source Serum or data Plasma Urea 7 - 18 mg/dL Normal No Jul 9 nitrogen informati 2017 [Mass/vol on in 11:32 AM ume] in source Serum or data Plasma Calcium 8.5 - mg/dL Normal No Jul 16 [Mass/vol 10.1 informati 2016 ume] in on in 11:32 AM Serum or source Plasma data Chloride 98 - 107 mmoL/L Normal No Jul 9 [Moles/vo informati 2017 lume] in on in 11:32 AM Serum or source Plasma data Carbon 21.0 - mmoL/L Normal No Jul 9 dioxide, 32.0 informati 2017 total on in 11:32 AM [Moles/vo source lume] in data Serum or Plasma Creatinin 0.70 - mg/dL Normal No Jul 9 e 1.30 informati 2017 [Mass/vol on in 11:32 AM ume] in source Serum or data Plasma Estimated >60 ML/MIN No REFERENCE Oct 9 informati RANGE: 2017 glomerula on in >60 11:32 AM r source ML/MIN/1. filtratio data 73 SQUARE n rate METERSIf (GF this patient is -A merican, then multiply theresult by 1.210. Globulin 1.3 - 3.2 gm/dL Normal No Jul 16 [Mass/vol informati 2016 ume] in on in 11:32 AM Serum source data Glucose 74 - 106 mg/dL Normal No Jul 16 [Mass/vol informati 2016 ume] in on in 11:32 AM Serum or source Plasma data Potassium 3.5 - 5.1 mmoL/L Normal No Jul 16 inform2016 [Moles/vo on in 11:32 AM lume] in source Serum or data Plasma Sodium 136 - 145 mmoL/L Normal No Jul 16 [Moles/vo informati 2016 lume] in on in 11:32 AM Serum or source Plasma data Aspartate 15 - 37 U/L Low No Jul 162016 aminotran on in 11:32 AM sferase source [Enzymati data c activity/ volume] in Serum or Plasma Alanine 12 - 78 U/L Normal No Jul 16 aminotran 2016 sferase on in 11:32 AM [Enzymati source c data activity/ volume] in Serum or Plasma Protein 6.4 - 8.2 gm/dL Normal No Jul 16 [Mass/vol informati 2016 ume] in on in 11:32 AM Serum or source Plasma data INR in Blood by Coagulation assay Observa Value Referen Units Interpr Notes Date tion ce etation Range INR in 0.9 - 1.1 No Normal INDICATIO Jul 16 Blood by informati N 2016 Coagulati on in 11:32 AM on assay source INR data RANGETHER APY FOR DVT, PE, ATRIAL FIB; 2.0 - 3.0PROPHY LAXIS FOR VTETHERAP Y FOR MECHANICA L HEART 2.5 - 3.5VALVE; PREVENTIO N OF SYSTEMICE MBOLISM SECONDARY TO AMI Prothromb 9.4 - SECONDS Normal No Jul 16 in time 11.8 informati 2016 (PT) in on in 11:32 AM Platelet source poor data plasma by Coagulati on assay CBC W Auto Differential panel in Blood Observa Value Referen Units Interpr Notes Date tion ce etation Range Basophils 0 - 0.2 K/MM3 Normal No Jul 16 inform2016 [#/volume on in 11:32 AM ] in source Blood by data Automated count Basophils 0.1 - 2.0 % Normal No Oct 9 /100 informati 2017 leukocyte on in 11:32 AM s in source Blood by data Automated count Eosinophi 0.0 - 0.4 K/mm3 Normal No Jul 16 ls inform2016 [#/volume on in 11:32 AM ] in source Blood by data Automated count Eosinophi 0.1 - % Normal No Jul 16 ls/100 12.0 inform2016 leukocyte on in 11:32 AM s in source Blood by data Automated count Granulocy 1.3 - 8.0 K/mm3 Normal No Jul 16 carolyn inform2016 [#/volume on in 11:32 AM ] in source Blood by data Automated count Granulocy 37.0 - % Normal No Jul 16 carolyn/100 80.0 inform2016 leukocyte on in 11:32 AM s in source Blood by data Automated count Hematocri 42.0 - % Normal No Jul 16 t [Volume 52.0 2016 on in 11:32 AM Fraction] source of Blood data Hemoglobi 14.1 - g/dL Normal No Jul 16 n 18.0 inform2016 [Mass/vol on in 11:32 AM ume] in source Blood data Lymphocyt 0.7 - 4.5 K/mm3 Normal No Jul 16 es 2016 [#/volume on in 11:32 AM ] in source Unspecifi data ed specimen by Automated count Lymphocyt 10 - 50 % Normal No Jul 16 es 2016 [#/volume on in 11:32 AM ] in source Unspecifi data ed specimen by Automated count Erythrocy 27 - 31.2 pg Normal No Jul 16 te mean 2016 corpuscul on in 11:32 AM ar source hemoglobi data n [Entitic mass] Erythrocy 31.8 - g/dl Normal No Jul 16 te mean 35.4 2016 corpuscul on in 11:32 AM ar source hemoglobi data n concentra tion [Mass/vol ume] by Automated count Erythrocy 82.2 - fl Normal No Jul 16 te mean 97.8 2016 corpuscul on in 11:32 AM ar volume source [Entitic data volume] by Automated count Monocytes 0.1 - 1.0 K/mm3 Normal No Jul 162016 [#/volume on in 11:32 AM ] in source Blood by data Automated count Monocytes 1.7 - 9.3 % Normal No Jul 162016 leukocyte on in 11:32 AM s in source Blood by data Automated count Platelet 7.4 - fl Low No Jul 16 mean 10.4 inform2016 volume on in 11:32 AM [Entitic source volume] data in Blood by Automated count Platelets 142 - 424 K/mm3 Normal No Jul 9 informati 2016 [#/volume on in 11:32 AM ] in source Blood data Erythrocy 4.6 - 6.2 M/mm3 Normal No Jul 16 carolyn inform2016 [#/volume on in 11:32 AM ] in source Amniotic data fluid Erythrocy 11.5 - % Normal No Jul 16 te 17.5 informati 2016 distribut on in 11:32 AM ion width source [Entitic data volume] by Automated count Leukocyte 4.8 - K/MM3 Low No Jul 16 s 10.8 informati 2016 [#/volume on in 11:32 AM ] in source Blood data
--- OUTSIDE RECORDS SUMMARY | 2017-09-02 10:42 | External Medical Summary Rpt ---
Author Author SAM Dos Santos, SAM [employer] Organization [employer] Address Unknown Phone Unavailable [...]
--- OUTSIDE RECORDS SUMMARY | 2017-09-02 10:42 | External Medical Summary Rpt | CCD ---
Demographics Preferred Language Thai Marital Status Unknown Orthodox Affiliation Unknown Race Unknown Ethnic Group Unknown Author Author , SAM VARGAS Address Unknown Phone Immunization No patient found.
--- OUTSIDE RECORDS SUMMARY | 2017-09-02 10:42 | External Medical Summary Rpt | CCD ---
Author Author , SAM Organization SAM Address Unknown Phone [email or web address] Care Team Providers Care Navy Airspace Officer Name Role Phone LUÍS RAYMUNDO MD, Unavailable Unavailable LUÍS Baron MD, Unavailable Unavailable Lisy Baron MD Purpose Continuity of Care Document - 02-17-2013 through 2016 Problems Code Diagnosis DOS Provider Status 882.0 882.0 OPEN 02-19-2013 Roland WOUND OF [facility] E849.0 E849.0 02-17-2013 Roland ACCIDENT IN [facility] E920.3 E920.3 02-17-2013 [place] KNIFE/[facility] /[facility] F80.81 CHILDHOOD ONSET FLUENCY DISORDER Allergies, [...] 2 L Ac 1% ti ve AL Vital Signs 02-19-2013 19:39 Name Value Interpretat [...] O2% 100 % Respiratory 16 /min Rate Results Labs Lab Lab Date Result Refere Interp Status Commen Order Detail nces retati t Range on CBC w auto diff (07-16-2017 11:32) Lymphoc = 26.5 10-50 complet yte 017 % ed count, 11:32 blood, automat ed Mean = 30.7 27-31.2 complet corpusc 017 pg ed ular 11:32 hemoglo bin ([facility]) determ Automat = 32.0 31.8-35 complet ed 017 g/dl .4 ed erythro 11:32 cyte mean corpusc ular h Automat = 95.9 82.2-97 complet ed 017 fl .8 ed erythro 11:32 cyte mean corpusc ular v Absolut = 0.3 0.1-1.0 complet e 017 K/mm3 ed monocyt 11:32 e count [place] % = 7.9 % 1.7-9.3 complet 017 ed 11:32 Automat = 7.3 7.4-10. complet ed 017 fl 4 ed blood 11:32 platele t mean volume salbador Blood = 259 142-424 complet platele 017 K/mm3 ed t count 11:32 Red = 5.15 4.6-6.2 complet blood 017 M/mm3 ed cell 11:32 count Automat = 13.1 11.5-17 complet ed 017 % .5 ed erythro 11:32 cyte distrib ution width Blood = 4.3 4.8-10. complet leukocy 017 K/MM3 8 ed carolyn 11:32 count (number /volume ) Automat = 0.0 0-0.2 complet ed 017 K/MM3 ed blood 11:32 basophi l count (count/ vo Baso % = 0.5 % 0.1-2.0 complet 017 ed 11:32 Automat = 0.1 0.0-0.4 complet ed 017 K/mm3 ed blood 11:32 eosinop hil count Automat = 1.7 % 0.1-12. complet ed 017 0 ed blood 11:32 eosinop hils/10 0 leukocy t Blood = 2.7 1.3-8.0 complet granulo 017 K/mm3 ed cytes 11:32 automat ed count (numb Granulo = 63.5 37.0-80 complet cyte 017 % .0 ed percent 11:32 age Blood = 49.4 42.0-52 complet hematoc 017 % .0 ed rit 11:32 (volume fractio n) Blood = 15.8 14.1-18 complet hemoglo 017 g/dL .0 ed bin 11:32 measure ment (mass/v olum Absolut = 1.1 0.7-4.5 complet e 017 K/mm3 ed lymphoc 11:32 yte count Whole blood INR measurement (07-16-2017 11:32) Whole = 1.06 0.9-1.1 complet blood 017 ed INR 11:32 measure ment Comment: INDICATION INR RANGE Comment: Comment: THERAPY FOR DVT, PE, ATRIAL FIB; 2.0 - 3.0 Comment: PROPHYLAXIS FOR VTE Comment: Comment: THERAPY FOR MECHANICAL HEART 2.5 - 3.5 Comment: VALVE; PREVENTION OF SYSTEMIC Comment: EMBOLISM SECONDARY TO AMI Prothro = 11.5 9.4-11. complet mbin 017 SECONDS 8 ed time 11:32 (PT) in platele t poor p Comprehensive metabolic panel (07-16-2017 11:32) Serum = 1.3 1.1-1.8 complet or 017 ed plasma 11:32 albumin /globul in mass ra Serum = 4.0 3.4-5.0 complet or 017 gm/dL ed plasma 11:32 albumin measure ment (mas Serum = 72 46-116 complet or 017 U/L ed plasma 11:32 alkalin e phospha tase salbador Serum = 0.2 0.2-1.0 complet or 017 mg/dL ed plasma 11:32 total bilirub in measure m Serum = 10 7-18 complet or 017 mg/dL ed plasma 11:32 urea nitroge n measure men Serum = 8.9 8.5-10. complet or 017 mg/dL 1 ed plasma 11:32 calcium measure ment (mas Serum = 105 98-107 complet or 017 mmoL/L ed plasma 11:32 chlorid e measure ment (mo Carbon = 29 21.0-32 complet dioxide 017 mmoL/L .0 ed 11:32 measure ment Serum = 1.1 0.70-1. complet or 017 mg/dL 30 ed plasma 11:32 creatin ine measure ment ( Estimat = 78 >60 complet ed 017 ML/MIN ed glomeru 11:32 lar filtrat ion rate (GF Comment: REFERENCE RANGE: >60 ML/MIN/1.73 SQUARE METERS Comment: If this patient is -Micronesian, then multiply the Comment: result by 1.210. Serum = 3.1 1.3-3.2 complet globuli 017 gm/dL ed n 11:32 measure ment (mass/v olume) Serum = 91 74-106 complet or 017 mg/dL ed plasma 11:32 glucose measure ment (mas Serum = 5.1 3.5-5.1 complet potassi 017 mmoL/L ed um 11:32 measure ment Serum = 140 136-145 complet sodium 017 mmoL/L ed measure 11:32 ment Serum = 13 15-37 complet or 017 U/L ed plasma 11:32 asparta te aminotr ansfera ALT = 22 12-78 complet (SGPT) 017 U/L ed ser/nona 11:32 s Protein = 7.1 6.4-8.2 complet total 017 gm/dL ed ser/nona 11:32 s Procedures Procedure DOS Code Location Performer Comment CLOSURE 86.59 M. [facility] & Tod DUNCAN SUBCUTANE OUS NEC Encounters Encounter Start End Date Code Location Performer Type Date Emergency RENETTA BalbuenaER) 3 18:44 3 19:41 [facility] A Emergency RENETTA Baron MD (ER) 3 21:49 3 22:26 [facility]
--- OUTSIDE RECORDS SUMMARY | 2017-09-02 10:42 | External Medical Summary Rpt | CCD ---
Author Author , SAM Organization SAM Address Unknown Phone [email or web address] Care Team Providers Care Manager Editorial Name Role Phone LUÍS RAYMUNDO MD, Unavailable Unavailable LUÍS Baron MD, Unavailable Unavailable Lisy Baron MD Purpose Continuity of Care Document - 02-17-2013 through 2016 Problems Code Diagnosis DOS Provider Status 882.0 882.0 OPEN 02-19-2013 Roland WOUND OF [facility] E849.0 E849.0 02-17-2013 Roland ACCIDENT IN [facility] E920.3 E920.3 02-17-2013 [place] KNIFE/[facility] /[facility] F80.81 CHILDHOOD ONSET FLUENCY DISORDER Allergies, [...] 017 K/mm3 ed monocyt 11:32 e count [place] % = 7.9 % 1.7-9.3 complet 017 [...] SQUARE METERS Comment: If this patient is -Greek, then multiply the Comment: result by 1.210. [...] Emergency RENETTA BalbuenaER) 3 18:44 3 19:41 [facility] A Emergency RENETTA Baron MD (ER) 3 21:49 3 22:26 [facility]
--- NOTE | 2017-09-02 11:22 | Urgent Treatment Center Report ---
History of Present Issue Date/Time Seen by Provider 09/02/17 1122 Visit Reason Pt arrived:Walked Presenting Problem:PT IS C/O RIGHT EYE IRRITATION AND SWELLING Location if Accident: Onset of symptoms date/time:/ or onset unknown for:MEDICAL HX UNKNOWN Have you (or family members/close friends) recently traveled outside the [place]? N If Yes, where/when: Have you had exposure to infectious disease within the past month? TB? Other? Specify: c/o right eye swelling below lower lashes. First noticed day before yesterday, worse this morning with eye swollen nearly closed when he woke up, cool compress and it improved but since being upright, has improved more. No fever, chill. recently had MRSA left FA. Warm to touch at times. No drainage, pain, redness, vision change. Hasn't taken anything for symptoms Source patient Exam Limitations no limitations ALLERGIES Coded Allergies: Sulfa (Sulfonamide Antibiotics) (Mild, 07/16/17) codeine (Mild, 07/16/17) Home Medications Reported Medications No Home Medications (NO HOME MEDICATIONS) History Medical History General CAD? No Angina: No RI: No Hypertension? No Hyperlipidemia? No CHF? No DVT? No PE? No COPD? No Asthma? No Anemia? No GERD? No Gastric ulcers? No GI Bleed? No Hernia? No Thyroid Problems? No Hypothyroidism? No CVA? No Seizures? No Diabetes? No Renal Insuffiency? No UTI? No Stones? No BPH? No GB Disease: No Nephritic Syndrome? No Asplenia? No Hepatitis? No Sickle Cell Disease? No Arthritis? No Migraines? No Cataracts? No Glaucoma? No MRSA? No HIV? No TB? No Anxiety? No Depression? No Cancer? No More? 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 Gastrointestinal denies nausea, denies vomiting Musculoskeletal denies neck pain Skin see HPI Psychiatric/Neurological denies headache Physical Exam Vital Signs Vital Signs Date Time Temp Pulse Resp B/P Pulse O2 O2 Flow FiO2 Ox Delivery Rate 09/02 1132 98.7 63 20 147/82 100 09/02 1045 98.7 63 20 147/82 100 General Appearance normal appearance (x/ right eye), no apparent distress Eye Exam - bilateral eye PERRL, bilateral eye EOMI Comment left eye exam normal; right scleral, iris, pupil, upper lid unremarkable; 1mm stye center right lower lid externally w/ mild periorbital swelling limited to just inferior to eye, mild tenderness, soft, non-fluctuate, no warmth or erythema Ear, Nose, Throat normal ENT inspection Neck normal inspection, non-tender, supple, full range of motion Respiratory Status No: respiratory distress. Cardiovascular no peripheral edema Neurologic alert, oriented x 3 Skin intact Lymphatic no adenopathy Medical Decision Making LABS/Meds/Orders Pt receiving controlled substance in ED? No Departure Departure Time of Disposition 1124 Disposition DC Home or Self Care(routine) Clinical Impression Primary Impression: Hordeolum externum right lower eyelid Secondary Impressions: History of MRSA infection Condition STABLE Referrals NO REFERRAL Follow up with primary care or [place] [facility] or return to [facility] immediately for new or worsening symptoms of if no improvement over the next 48 hours. Patient Instructions DI for Hordeolum Additional Instructions warm moist compresses wash eyelids gently with baby shampoo sleep elevated Monitor closely especially w/ just having MRSA. The swelling can be concerning for abscess formation if worsens. Follow up immediately if more red, more swollen, painful, fevers, feeling hot Discharge Counseling Counseled pt/family regarding diagnosis, medications/RX, home care, follow up needs Prescriptions Current Visit Scripts Clindamycin Hcl (Clindamycin 300MG) 300 MG PO QID #40 CAP at 0037
[2017-09-02] MEDS ORDERED: CLINDAMYCIN HC300 MG PO (11:31)
[2017-09-02 11:32] VITALS: BP 147/82
[2017-09-02] MEDS ORDERED: ERYTHROMYC3.5 GM/TUB OP (23:57)
[2017-09-02] MEDS ORDERED: KEFLEX 500MG.500 MG PO (23:58)
== END 2017-09-02 11:34 | disposition home or self-care (01) ==
LOC: UTC 10:37
DX: H00.012 Hordeolum externum right lower eyelid (principal); F17.210 Nicotine dependence, cigarettes, uncomplicated

== ENCOUNTER 2017-09-02 22:20 | Emergency (ER) | payer MEDICAID ==
[~2017-09-02] VITALS: Ht 167.6 cm; Wt 68.0 kg
[~2017-09-02 22:20] MED LIST changes: +CLINDAMYCIN HC300 MG PO
--- OUTSIDE RECORDS SUMMARY | 2017-09-02 22:28 | External Medical Summary Rpt | CCD ---
Author Author , SAM Organization SAM Address Unknown Phone [email or web address] Care Team Providers Care Family Worker Name Role Phone LUÍS RAYMUNDO MD, Unavailable Unavailable LUÍS Baron MD, Unavailable Unavailable Lisy Baron MD Purpose Continuity of Care Document - 02-17-2013 through 2016 Problems Code Diagnosis DOS Provider Status 882.0 882.0 OPEN 02-19-2013 Roland WOUND OF [facility] E849.0 E849.0 02-17-2013 Roland ACCIDENT IN [facility] E920.3 E920.3 02-17-2013 [place] KNIFE/[facility] F80.81 CHILDHOOD ONSET FLUENCY DISORDER Allergies, Adverse [...] 017 K/mm3 ed monocyt 11:32 e count [place] % = 7.9 % 1.7-9.3 complet 017 [...] SQUARE METERS Comment: If this patient is -Ecuadorean, then multiply the Comment: result by 1.210. [...] Emergency RENETTA BalbuenaER) 3 18:44 3 19:41 [facility] A Emergency RENETTA Baron MD (ER) 3 21:49 3 22:26 [facility]
--- OUTSIDE RECORDS SUMMARY | 2017-09-02 22:28 | External Medical Summary Rpt | CCD ---
Demographics Preferred Language [place]inean Marital Status Unknown Tenriism Affiliation Unknown Race Unknown Ethnic Group Unknown Author Author , SAM VARGAS Address Unknown Phone Immunization No patient found.
--- OUTSIDE RECORDS SUMMARY | 2017-09-02 22:28 | External Medical Summary Rpt ---
Author Author SAM Dos Santos, SAM [employer] Organization [employer] Address Unknown Phone Unavailable [...]
--- OUTSIDE RECORDS SUMMARY | 2017-09-02 22:28 | External Medical Summary Rpt | CCD ---
Author Author , SAM Organization SAM Address Unknown Phone [email or web address] Care Team Providers Care Electronic Science Teacher Name Role Phone LUÍS RAYMUNDO MD, Unavailable Unavailable LUÍS Baron MD, Unavailable Unavailable Lisy Baron MD Purpose Continuity of Care Document - 02-17-2013 through 2016 Problems Code Diagnosis DOS Provider Status 882.0 882.0 OPEN 02-19-2013 Roland WOUND OF [facility] E849.0 E849.0 02-17-2013 Roland ACCIDENT IN [facility] E920.3 E920.3 02-17-2013 [place] KNIFE/[facility] /[facility] F80.81 CHILDHOOD ONSET FLUENCY DISORDER Allergies, [...] 017 K/mm3 ed monocyt 11:32 e count [place] % = 7.9 % 1.7-9.3 complet 017 [...] SQUARE METERS Comment: If this patient is -Malagasy, then multiply the Comment: result by 1.210. [...] Emergency RENETTA BalbuenaER) 3 18:44 3 19:41 [facility] A Emergency RENETTA Baron MD (ER) 3 21:49 3 22:26 [facility]
--- OUTSIDE RECORDS SUMMARY | 2017-09-02 22:28 | External Medical Summary Rpt | CCD ---
Demographics Preferred Language Citizen Of [place] Marital Status Unknown Nondenominational Affiliation Unknown Race Unknown Ethnic Group Unknown Author Author , SAM VARGAS Address Unknown Phone Immunization No patient found.
--- OUTSIDE RECORDS SUMMARY | 2017-09-02 22:28 | External Medical Summary Rpt ---
Author Author SAM Dos Santos, SAM [employer] Organization [employer] Address Unknown Phone Unavailable [...]
[2017-09-02] MEDS ORDERED: ERYTHROMYC3.5 GM/TUB OP (23:57)
[2017-09-02] MEDS ORDERED: KEFLEX 500MG.500 MG PO (23:58)
--- NOTE | 2017-09-02 23:58 | Emergency Room Report ---
History of Present Illness Time Seen by [id number] Presenting Problem in Triage Pt arrived:Walked Presenting Problem:C/O STY ON RIGHT EYE. WAS SEEN IN [facility] THIS AM AND RECEIVED ANTIBIOTICS. WAS TOLD TO RETURN FOR WORSENING OF SYMPTOMS AND HE STATES THAT THE REDNESS AND EDEMA IS WORSE TONIGHT Onset of symptoms date/time:08/31/17/ or onset unknown for:MEDICAL HX UNKNOWN Treatment Prior to Arrival: SEEN IN [facility] THIS AM [employer] Provided by:NURSE Sepsis Risk Assessment: Temp: 98.2 B/P: 148/76 MAP: 100 Pulse: 69 Resp: 20 Recent fever? N Clinical Suspician of Infection? Y Mental Status: 1 - Regular (Normal Baseline) Sepsis Risk:Low Sepsis Risk Have you (or family members/close friends) recently traveled outside the [place]? N If Yes, where/when: Have you had exposure to infectious disease within the past month? N TB? Other? Specify: Source patient, RN notes reviewed, RN/MD Exam Limitations no limitations Comment This is a 32-year-old male patient seen around 11 AM today in the [facility] for a RIGHT lower eyelid stye for which she was prescribed clindamycin. Patient returns to the emergency room this evening with persistent pain, and more redness/swelling of the lower eyelid. He advised that he has filled the antibiotic previously prescribed and started it as well. ALLERGIES Coded Allergies: Sulfa (Sulfonamide Antibiotics) (Mild, 07/16/17) codeine (Mild, 07/16/17) Home Medications Active Scripts Clindamycin Hcl (Clindamycin 300MG) 300 MG PO QID #40 CAP Prov: 09/02/17 Reported Medications No Home Medications (NO HOME MEDICATIONS) History Medical History General CAD? No Angina: No IN: No Hypertension? No Hyperlipidemia? No CHF? No DVT? No PE? No COPD? No Asthma? No Anemia? No GERD? No Gastric ulcers? No GI Bleed? No Hernia? No Thyroid Problems? No Hypothyroidism? No CVA? No Seizures? No Diabetes? No Renal Insuffiency? No End Stage Renal Disease? No UTI? No Stones? No BPH? No GB Disease: No Nephritic Syndrome? No Asplenia? No Hepatitis? No Sickle Cell Disease? No Arthritis? No Migraines? No Cataracts? No Glaucoma? No MRSA? Yes HIV? No TB? No Anxiety? No Depression? No Cancer? No More? 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 - TORN MINISCUS Family History Family Hx Diabetes Yes CAD Yes Hypertension No Hyperlipidemia No Cancer No TB No Social History Smoking Hx Smoker: Current Every Day Smoker Tobacco: Yes Type Cigarettes Packs/day < 1 Pack Alcohol Alcohol: No Review of Systems All Other Systems Reviewed and Negative Eyes see HPI, inflammation (RIGHT lower eyelid) Physical Exam Vital Signs Vital Signs Date Time Temp Pulse Resp B/P Pulse O2 O2 Flow FiO2 Ox Delivery Rate 09/03 0002 98.2 69 20 148/76 96 09/025 98.2 69 20 148/76 96 General Appearance normal appearance, WD/WN, no apparent distress Eye Exam - right eye eyelid inflammation (lower, w/ stye), left eye normal exam, bilateral eye PERRL, bilateral eye EOMI Neck normal inspection, non-tender, supple, full range of motion Respiratory Status Yes: trachea midline, chest symmetrical, non tender chest. No: respiratory distress. Lung Sounds bilateral: normal breath sounds, lungs clear. Cardiovascular normal exam, regular rate/rhythm, no peripheral edema, no gallop, no JVD, no murmur, no rub, normal peripheral pulses Gastrointestinal normal bowel sounds, normal exam, non tender, soft, no organomegaly Extremities non-tender, normal range of motion, normal inspection Neurologic alert, ammunition specialist II-XII nml as tested, normal exam, oriented x 3 Mental status depressed affect Skin normal color, warm/dry, stye of the RIGHT lower eyelid, with mild local erythema/inflammation Medical Decision Making LABS/Meds/Orders Pt receiving controlled substance in ED? No Comment [id number]-advised patient to follow-up with Dr. Mamadou Zuleta at [facility] in [facility] the morning. If unable to see the health and safety manager, and if not improving, patient advised to return promptly to this, same, emergency room for reevaluation. Advised patient to continue the clindamycin, will add erythromycin ophthalmic ointment plus Keflex. Patient denies any blurred vision. Results/Orders Current Medication Orders Sig/Gabby Start time Last Medication Dose Route Stop Time Status Admin Cephalexin 0 .STK-MED ONE 09/03 0002 DC Monohydrate PO Miscellaneous 0 .STK-MED ONE 11/26 2356 DC XX Cephalexin 500 MG ONCE ONE 09/02 2345 DC 09/03 Monohydrate PO 09/02 2346 0005 Erythromycin 1 GM ONCE ONE 09/02 2345 DC 09/03 OP 09/02 2346 0005 Departure Departure Time of Disposition 2354 Disposition DC Home or Self Care(routine) Clinical Impression Primary Impression: Stye Qualifiers: Laterality: right Eyelid: lower Qualified Code: H00.012 - Hordeolum externum right lower eyelid Condition STABLE Referrals [facility]: Tomorrow-Call Office Patient Instructions DI for Hordeolum Additional Instructions Discontinue the antibiotics previously prescribed, clindamycin. Please find attached to additional prescriptions for Keflex, to be taken orally and erythromycin ophthalmic ointment, to be applied in the RIGHT subconjunctival sac, per instructions. Please see Dr. Mamadou Zuleta at [facility] today, as instructed. Discharge Counseling Counseled pt/family regarding diagnosis, medications/RX, home care, follow up needs Comment Discontinue the antibiotics previously prescribed, clindamycin. Please find attached to additional prescriptions for Keflex, to be taken orally and erythromycin ophthalmic ointment, to be applied in the RIGHT subconjunctival sac, per instructions. Please see Dr. Mamadou Zuleta at [facility] today, as instructed. Prescriptions Current Visit Scripts Erythromycin (Erythromycin Ophth Oint 3.5GM Tube) 1 GM OP QID #1 OIN CEPHALEXIN (Keflex 500MG Capsule) 500 MG PO QID #28 CAP ED Critical Care Critical Care No at [id number]
--- NOTE | 2017-09-02 23:58 | Emergency Room Report ---
History of Present Illness Time Seen by [id number] Presenting Problem in Triage Pt arrived:Walked Presenting Problem:C/O STY ON RIGHT EYE. WAS SEEN IN [facility] THIS AM AND RECEIVED ANTIBIOTICS. WAS TOLD TO RETURN FOR WORSENING OF SYMPTOMS AND HE STATES THAT THE REDNESS AND EDEMA IS WORSE TONIGHT Onset of symptoms date/time:08/31/17/ or onset unknown for:MEDICAL HX UNKNOWN Treatment Prior to Arrival: SEEN IN [facility] THIS AM SHOCHET Provided by:NURSE Sepsis Risk Assessment: Temp: 98.2 B/P: 148/76 MAP: 100 Pulse: 69 Resp: 20 Recent fever? N Clinical Suspician of Infection? Y Mental Status: 1 - Regular (Normal Baseline) Sepsis Risk:Low Sepsis Risk Have you (or family members/close friends) recently traveled outside the [place]? N If Yes, where/when: Have you had exposure to infectious disease within the past month? N TB? Other? Specify: Source patient, RN notes reviewed, RN/MD Exam Limitations no limitations Comment This is a 32-year-old male patient seen around 11 AM today in the [facility] for a RIGHT lower eyelid stye for which she was prescribed clindamycin. Patient returns to the emergency room this evening with persistent pain, and more redness/swelling of the lower eyelid. He advised that he has filled the antibiotic previously prescribed and started it as well. ALLERGIES Coded Allergies: Sulfa (Sulfonamide Antibiotics) (Mild, 07/16/17) codeine (Mild, 07/16/17) Home Medications Active Scripts Clindamycin Hcl (Clindamycin 300MG) 300 MG PO QID #40 CAP Prov: 09/02/17 Reported Medications No Home Medications (NO HOME MEDICATIONS) History Medical History General CAD? No Angina: No NH: No Hypertension? No Hyperlipidemia? No CHF? No DVT? No PE? No COPD? No Asthma? No Anemia? No GERD? No Gastric ulcers? No GI Bleed? No Hernia? No Thyroid Problems? No Hypothyroidism? No CVA? No Seizures? No Diabetes? No Renal Insuffiency? No End Stage Renal Disease? No UTI? No Stones? No BPH? No GB Disease: No Nephritic Syndrome? No Asplenia? No Hepatitis? No Sickle Cell Disease? No Arthritis? No Migraines? No Cataracts? No Glaucoma? No MRSA? Yes HIV? No TB? No Anxiety? No Depression? No Cancer? No More? 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 - TORN MINISCUS Family History Family Hx Diabetes Yes CAD Yes Hypertension No Hyperlipidemia No Cancer No TB No Social History Smoking Hx Smoker: Current Every Day Smoker Tobacco: Yes Type Cigarettes Packs/day < 1 Pack Alcohol Alcohol: No Review of Systems All Other Systems Reviewed and Negative Eyes see HPI, inflammation (RIGHT lower eyelid) Physical Exam Vital Signs Vital Signs Date Time Temp Pulse Resp B/P Pulse O2 O2 Flow FiO2 Ox Delivery Rate 09/03 0002 98.2 69 20 148/76 96 09/025 98.2 69 20 148/76 96 General Appearance normal appearance, WD/WN, no apparent distress Eye Exam - right eye eyelid inflammation (lower, w/ stye), left eye normal exam, bilateral eye PERRL, bilateral eye EOMI Neck normal inspection, non-tender, supple, full range of motion Respiratory Status Yes: trachea midline, chest symmetrical, non tender chest. No: respiratory distress. Lung Sounds bilateral: normal breath sounds, lungs clear. Cardiovascular normal exam, regular rate/rhythm, no peripheral edema, no gallop, no JVD, no murmur, no rub, normal peripheral pulses Gastrointestinal normal bowel sounds, normal exam, non tender, soft, no organomegaly Extremities non-tender, normal range of motion, normal inspection Neurologic alert, mds rn II-XII nml as tested, normal exam, oriented x 3 Mental status depressed affect Skin normal color, warm/dry, stye of the RIGHT lower eyelid, with mild local erythema/inflammation Medical Decision Making LABS/Meds/Orders Pt receiving controlled substance in ED? No Comment [id number]-advised patient to follow-up with Dr. Mamadou Zuleta at [facility] in [facility] the morning. If unable to see the reference assistant, and if not improving, patient advised to return promptly to this, same, emergency room for reevaluation. Advised patient to continue the clindamycin, will add erythromycin ophthalmic ointment plus Keflex. Patient denies any blurred vision. Results/Orders Current Medication Orders Sig/Gabby Start time Last Medication Dose Route Stop Time Status Admin Cephalexin 0 .STK-MED ONE 09/03 0002 DC Monohydrate PO Miscellaneous 0 .STK-MED ONE 11/26 2356 DC XX Cephalexin 500 MG ONCE ONE 09/02 2345 DC 09/03 Monohydrate PO 09/02 2346 0005 Erythromycin 1 GM ONCE ONE 09/02 2345 DC 09/03 OP 09/02 2346 0005 Departure Departure Time of Disposition 2354 Disposition DC Home or Self Care(routine) Clinical Impression Primary Impression: Stye Qualifiers: Laterality: right Eyelid: lower Qualified Code: H00.012 - Hordeolum externum right lower eyelid Condition STABLE Referrals [facility]: Tomorrow-Call Office Patient Instructions DI for Hordeolum Additional Instructions Discontinue the antibiotics previously prescribed, clindamycin. Please find attached to additional prescriptions for Keflex, to be taken orally and erythromycin ophthalmic ointment, to be applied in the RIGHT subconjunctival sac, per instructions. Please see Dr. Mamadou Zuleta at [facility] today, as instructed. Discharge Counseling Counseled pt/family regarding diagnosis, medications/RX, home care, follow up needs Comment Discontinue the antibiotics previously prescribed, clindamycin. Please find attached to additional prescriptions for Keflex, to be taken orally and erythromycin ophthalmic ointment, to be applied in the RIGHT subconjunctival sac, per instructions. Please see Dr. Mamadou Zuleta at [facility] today, as instructed. Prescriptions Current Visit Scripts Erythromycin (Erythromycin Ophth Oint 3.5GM Tube) 1 GM OP QID #1 OIN CEPHALEXIN (Keflex 500MG Capsule) 500 MG PO QID #28 CAP ED Critical Care Critical Care No at [id number]
[2017-09-03 00:02] VITALS: BP 148/76
== END 2017-09-03 00:08 | disposition home or self-care (01) ==
LOC: ER 22:20
DX: H00.012 Hordeolum externum right lower eyelid (principal)